=== PATIENT | female | born 1990 ===

== ENCOUNTER 2018-02-27 10:16 | Emergency (ER) | payer OTHER ==
[2018-02-27 10:25] VITALS: BMI 36.9
[2018-02-27 10:26] VITALS: BP 133/78; PULSE 104; RESP 18; TEMP 98.4; O2SAT 97
--- NOTE | 2018-02-27 11:20 | C.PDOC ---
History Of Present Illness Patient is a 27 year old female with PMHx transaminitis and viral meningitis in 2016 who presents with history of headache which started on Monday. Patient states that Tylenol helps the headache but that the pain returns when the medication wears off. Patient states the pain is not very strong, reports 3-4/ 10. Patient denies fever/ chills, nausea, vomiting, photophobia, visual changes. Patient states raising her eyebrows, walking, and moving her head worsens the pain. Patient did not take Tylenol today. LMP 02/25/18. Chief Complaint (Nursing): Headache History Per: Patient Onset/Duration Of Symptoms: Days (Monday) Current Symptoms Are (Timing): Still Present Severity: Mild Pain Scale Rating Of: 3 Quality: Dull Preceeding Symptoms: None Associated Symptoms: denies: Photophobia, Blurred Vision, Nausea, Vomiting, Extremity Weakness Past Medical History Vital Signs: Last Vital Signs Temp 98.4 F 02/27/18 10:25 Pulse 104 H 02/27/18 10:25 Resp 18 02/27/18 10:25 BP 133/78 02/27/18 10:25 Pulse Ox 97 02/27/18 11:22 - Medical History Other PMH: transaminitis, viral meningitis 2016 - [facility] Procedures DELIVERY OF PRODUCTS OF CONCEPTION, EXTERNAL APPROACH (09/14/15) DRAINAGE OF AMNIOTIC FL, THERAP FROM POC, VIA OPENING (09/14/15) DRAINAGE OF SPINAL CANAL, PERCUTANEOUS APPROACH, DIAGNOSTIC (10/06/16) Family History: States: No Known Family Hx - Social History Hx Alcohol Use: No Hx Substance Use: No - Immunization History Hx Tetanus Toxoid Vaccination: No Hx Influenza Vaccination: No Hx Pneumococcal Vaccination: No Review Of Systems Constitutional: Negative for: Fever, Chills Eyes: Negative for: Vision Change ENT: Negative for: Ear Pain, Nose Congestion Cardiovascular: Negative for: Chest Pain, Palpitations Respiratory: Negative for: Cough, Shortness of Breath Gastrointestinal: Negative for: Nausea, Vomiting, Abdominal Pain Genitourinary: Negative for: Dysuria Musculoskeletal: Negative for: Neck Pain, Back Pain Neurological: Negative for: Weakness, Numbness, Dizziness Physical Exam - Physical Exam Appears: Non-toxic, No Acute Distress Skin: Normal Color, Warm, Dry Head: Atraumatic, Normacephalic Eye(s): bilateral: PERRL, EOMI Ear(s): Bilateral: Normal Nose: Normal Oral Mucosa: Moist Tongue: Normal Appearing Lips: Normal Appearing Throat: Normal, No Erythema, No Exudate Neck: Normal, Normal ROM, No Midline Cervical Tenderness, Paracervical Tenderness (paravertebral muscle tenderness) Lymphatic: No Adenopathy Chest: Symmetrical Cardiovascular: Rhythm Regular Respiratory: Normal Breath Sounds Gastrointestinal/Abdominal: Normal Exam, Bowel Sounds, Soft, No Tenderness Extremity: No Tenderness, No Pedal Edema Neurological/Psych: Oriented x3, Normal Speech, Normal Cognition, Normal Cranial Nerves ED Course And Treatment O2 Sat by Pulse Oximetry: 97 Disposition - Disposition Referrals: [facility] [Outside] [facility] [Outside] Disposition: HOME/ ROUTINE Disposition Time: 10:00 Condition: GOOD Additional Instructions: Thank you for letting us take care of you today. The emergency medical care you received today was directed at your acute symptoms. If you were prescribed any medication, please fill it and take as directed. It may take several days for your symptoms to resolve. Return to the Emergency Department if your symptoms worsen, do not improve, or if you have any other problems. Please contact your doctor or call one of the physicians/clinics you have been referred to that are listed on the Patient Visit Information form that is included in your discharge packet. Bring any paperwork you were given at discharge with you along with any medications you are taking to your follow up visit. Our treatment cannot replace ongoing medical care by a primary care provider (PCP) outside of the emergency department. Thank you for allowing the [facility] team to be part of your care today. Follow up with the clinic in 2-3 days for re-evaluation and further management. Yannick por dejarnos atenderlo hoy. La atencin mdica de emergencia que recibi hoy estaba dirigida a loreta sntomas agudos. Si le prescribieron algn medicamento, llnelo y tome segn las indicaciones. Loreta sntomas pueden tardar varios ghotra en resolverse. Regrese al Departamento de Emergencia si loreta s ntomas empeoran, no mejoran o si tiene algn otro problema. Comunquese con lou mdico o llame a jeff de los mdicos / clnicas a los que crenshaw sido referido que figura en el formulario de Informacin de visita del paciente que se incluye en lou paquete de benedicto. Traiga todos los documentos que recibi al momento del benedicto junto con los medicamentos que est tomando en lou visita de seguimiento. Nuestro tratamiento no puede reemplazar la atencin mdica en curso por parte de un proveedor de atencin primaria (PCP) fuera del departamento de emergencias. Yannick por permitir que el equipo de [facility] sea parte de lou cuidado hoy. Lurdes un seguimiento con la clnica en 2-3 ghotra para jaime nueva evaluacin y ms administracin. Prescriptions: Cyclobenzaprine [Cyclobenzaprine HCl] 10 mg PO Q8 PRN #20 tab PRN Reason: Muscle Spasm Ibuprofen [Motrin] 600 mg PO Q6 PRN #20 tab PRN Reason: Pain, Moderate (4-7) Instructions: Tension Headache (DC) Forms: Gen Discharge Inst Maltese Print Language: SLOVAK - Clinical Impression Clinical Impression: Headache
== END 2018-02-27 11:27 | disposition home or self-care (01) ==
LOC: C.ER 10:16
DX: R51 Headache (principal)